=== PATIENT | female | born 1945 | race Caucasian/White ===

== ENCOUNTER 2016-10-02 13:30 | Inpatient (IN) | payer MEDICAID, MEDICARE ==
[~2016-10-02] VITALS: Ht 157.5 cm; Wt 52.2 kg
[2016-10-02 13:44] VITALS: BP 112/80; PULSE 78; RESP 20; TEMP 98.2; O2SAT 98
[2016-10-02] MEDS ORDERED: HYDROcodone/ACETAMIN 5-325 MG TAB (NORCO/ VICODIN) PO ONE (14:00)
[2016-10-02 14:49] LABS: BILIRUBIN,URINE NEGATIVE (NEGATIVE); BLOOD, URINE 1+ (NEGATIVE); CLARITY/URINE CLEAR (CLEAR); COLOR,URINE YELLOW (YELLOW); GLUCOSE,URINE NEGATIVE (NEGATIVE); KETONES,URINE NEGATIVE (NEGATIVE); LEUKOCYTE ESTERASE ,URINE TRACE (NEGATIVE); NITRITE, URINE NEGATIVE (NEGATIVE); PROTEIN URINE NEGATIVE (NEGATIVE); UROBILINOGEN,URINE 0.2 (0.2-1.0)
[2016-10-02 15:00] LABS: BASOPHILS % (AUTO) 0.2 % (0.0-2.0); EOSINOPHILS % (AUTO) 0.2 % (0.0-4.0); HEMATOCRIT 43.7 % (36-48); HEMOGLOBIN 14.8 g/dL (12.0-16.0); LYMPHOCYTES # (AUTO) 1.2 K/uL (1.0-5.5); MEAN CORPUSCULAR HEMOGLOBIN 35 pg (27-31); MEAN CORPUSCULAR HGB CONC 34 % (32-36); MEAN CORPUSCULAR VOLUME 105 fL (79.0-98.0); MONOCYTES # (AUTO) 0.4 K/uL (0.0-1.0); MONOCYTES % (AUTO) 2.7 % (1.7-9.3); NEUTROPHILS # (AUTO) 11.8 K/uL (1.8-7.7); NEUTROPHILS % (AUTO) 87.9 % (40.0-70.0); PLATELET COUNT (AUTO) 284 K/uL (130-430); RED BLOOD CELL COUNT(AUTO) 4.17 MIL/uL (4.2-6.2); RED CELL DISTRIBUTION WIDTH 12.1 % (9.0-15.0); WHITE BLOOD COUNT (AUTO) 13.4 K/uL (4.8-10.8)
[2016-10-02] MEDS ORDERED: fentaNYL CITRATE/PF 100 MCG/2 ML AMP IVP ONE (15:00)
[2016-10-02] MEDS ORDERED: ONDANSETRON HCL 4 MG/2 ML VIAL IVP ONE (15:00)
[2016-10-02 15:09] LABS: BACTERIA,URINE FEW /HPF (None Seen); MUCUS,URINE None Seen /LPF (None Seen); RBC,URINE 0-3 /HPF (0-3)
[2016-10-02 15:09] LABS: CALCIUM 8.7 mg/dL (8.4-11.0); CREATININE 0.5 mg/dL (0.55-1.30); POTASSIUM 3.7 mmol/L (3.5-5.1)
[2016-10-02 15:13] LABS: ALBUMIN 3.7 g/dL (3.4-4.8); TOTAL BILIRUBIN 0.2 mg/dL (0.0-1.0)
[2016-10-02 15:16] LABS: INR 0.9 (0.8-1.2)
[2016-10-02] MEDS ORDERED: ASPI325T2 PO (15:39)
[2016-10-02] MEDS ORDERED: penicillin PO (15:39)
[2016-10-02 16:20] VITALS: BP 129/73; PULSE 93; RESP 18; TEMP 97.1; O2SAT 97
[2016-10-02] MEDS ORDERED: ACETAMINOPHEN 500 MG TABLET PO PRN (19:45)
[2016-10-02 19:48] VITALS: BP 137/69; PULSE 94; RESP 16; TEMP 97.1; O2SAT 97
[2016-10-02] MEDS: HYDROcodone/ACETAMIN 5-325 MG TAB (NORCO/ VICODIN) PO PRN (20:38)
[2016-10-02] MEDS: KCL 20 mEq in D5/0.45NS 1000mL 1,000 ML IV SCH (23:01)
[2016-10-02] MEDS: chlordiazePOXIDE HCL 25 MG CAPSULE PO PRN (23:02)
[2016-10-02] MEDS: AMOXICILLIN/CLAVULANATE POTASSIUM 250 MG/5 ML, 75 ML BTL PO SCH (23:02)
[2016-10-02] MEDS: CYCLOBENZAPRINE HCL 10 MG TABLET (FLEXERIL) PO PRN (23:02)
[2016-10-03] VITALS (7 sets, daily range): BP systolic 105–162; BP diastolic 54–84; PULSE 77–101; RESP 14–18; TEMP 96.5–98.4; O2SAT 96–98
[2016-10-03] MEDS: AMOXICILLIN/CLAVULANATE POTASSIUM 250 MG/5 ML, 75 ML BTL PO SCH ×3 (05:17→20:59)
[2016-10-03 06:44] LABS: CALCIUM 8.2 mg/dL (8.4-11.0); CREATININE 0.53 mg/dL (0.55-1.30); POTASSIUM 3.6 mmol/L (3.5-5.1)
[2016-10-03 06:56] LABS: BASOPHILS % (AUTO) 0.6 % (0.0-2.0); EOSINOPHILS % (AUTO) 0.5 % (0.0-4.0); HEMOGLOBIN 13.8 g/dL (12.0-16.0); LYMPHOCYTES # (AUTO) 1.3 K/uL (1.0-5.5); LYMPHOCYTES % (AUTO) 17.8 % (20.5-51.5); MEAN CORPUSCULAR HEMOGLOBIN 35 pg (27-31); MEAN CORPUSCULAR HGB CONC 34 % (32-36); MEAN CORPUSCULAR VOLUME 103 fL (79.0-98.0); MONOCYTES # (AUTO) 0.5 K/uL (0.0-1.0); MONOCYTES % (AUTO) 7.4 % (1.7-9.3); NEUTROPHILS # (AUTO) 5.6 K/uL (1.8-7.7); NEUTROPHILS % (AUTO) 73.7 % (40.0-70.0); PLATELET COUNT (AUTO) 228 K/uL (130-430); RED CELL DISTRIBUTION WIDTH 12.1 % (9.0-15.0); WHITE BLOOD COUNT (AUTO) 7.4 K/uL (4.8-10.8)
[2016-10-03] MEDS: HYDROcodone/ACETAMIN 5-325 MG TAB (NORCO/ VICODIN) PO PRN ×3 (07:50→21:00)
[2016-10-03] MEDS: ENOXAPARIN SODIUM 40 MG/0.4 ML SYRINGE SUBCUT SCH (08:25)
[2016-10-03] MEDS: ASPIRIN 325 MG TABLET PO SCH (08:25)
[2016-10-03] MEDS: CYCLOBENZAPRINE HCL 10 MG TABLET (FLEXERIL) PO PRN ×2 (08:33→21:00)
[2016-10-03] MEDS: chlordiazePOXIDE HCL 25 MG CAPSULE PO PRN ×2 (08:33→21:00)
[2016-10-03] MEDS: THIAMINE HCL 100 MG in NS 50 ML IV SCH (08:34)
[2016-10-03] MEDS: KCL 20 mEq in D5/0.45NS 1000mL 1,000 ML IV SCH (14:36)
[2016-10-04] MEDS: KCL 20 mEq in D5/0.45NS 1000mL 1,000 ML IV SCH ×2 (03:08→17:44)
[2016-10-04 04:12] VITALS: BP 111/57; PULSE 89; RESP 18; TEMP 98.2; O2SAT 97
[2016-10-04] MEDS: CYCLOBENZAPRINE HCL 10 MG TABLET (FLEXERIL) PO PRN ×2 (05:11→17:42)
[2016-10-04] MEDS: HYDROcodone/ACETAMIN 5-325 MG TAB (NORCO/ VICODIN) PO PRN ×2 (05:11→17:42)
[2016-10-04] MEDS: AMOXICILLIN/CLAVULANATE POTASSIUM 250 MG/5 ML, 75 ML BTL PO SCH ×3 (05:11→22:06)
[2016-10-04] MEDS: ENOXAPARIN SODIUM 40 MG/0.4 ML SYRINGE SUBCUT SCH (08:35)
[2016-10-04] MEDS: ASPIRIN 325 MG TABLET PO SCH (08:35)
[2016-10-04] MEDS: chlordiazePOXIDE HCL 25 MG CAPSULE PO PRN ×2 (08:39→17:43)
[2016-10-04 08:41] VITALS: BP 110/67; PULSE 98; RESP 18; TEMP 97.8; O2SAT 97
[2016-10-04] MEDS: THIAMINE HCL 100 MG in NS 50 ML IV SCH (09:55)
[2016-10-04 12:00] VITALS: BP 108/73; PULSE 84; RESP 18; TEMP 97.3; O2SAT 95
[2016-10-04 18:36] VITALS: BP 105/70; PULSE 80; RESP 18; TEMP 97.1; O2SAT 95
[2016-10-04 20:42] VITALS: BP 108/54; PULSE 68; RESP 16; TEMP 97.8; O2SAT 98
[2016-10-04 23:50] VITALS: BP 126/71; PULSE 86; RESP 20; TEMP 97.2; O2SAT 100
[2016-10-05] MEDS: HYDROcodone/ACETAMIN 5-325 MG TAB (NORCO/ VICODIN) PO PRN ×2 (03:43→15:47)
[2016-10-05 04:18] VITALS: BP 127/64; PULSE 90; RESP 20; TEMP 97.2; O2SAT 97
[2016-10-05] MEDS: KCL 20 mEq in D5/0.45NS 1000mL 1,000 ML IV SCH ×2 (05:23→22:16)
[2016-10-05] MEDS: AMOXICILLIN/CLAVULANATE POTASSIUM 250 MG/5 ML, 75 ML BTL PO SCH ×3 (06:00→22:15)
[2016-10-05] MEDS: ENOXAPARIN SODIUM 40 MG/0.4 ML SYRINGE SUBCUT SCH (08:54)
[2016-10-05] MEDS: chlordiazePOXIDE HCL 25 MG CAPSULE PO PRN ×3 (08:54→22:18)
[2016-10-05] MEDS: THIAMINE HCL 100 MG in NS 50 ML IV SCH (08:54)
[2016-10-05] MEDS: ASPIRIN 325 MG TABLET PO SCH (08:55)
[2016-10-05 08:56] VITALS: BP 104/68; PULSE 107; RESP 20; TEMP 98; O2SAT 97
[2016-10-05 13:06] VITALS: BP 124/74; PULSE 92; RESP 16; TEMP 97.4; O2SAT 98
[2016-10-05 17:05] VITALS: BP 141/70; PULSE 83; RESP 18; TEMP 97.4; O2SAT 96
[2016-10-05 19:00] VITALS: BP 135/72; PULSE 85; RESP 16; TEMP 97.5; O2SAT 96
[2016-10-05 20:00] VITALS: BP 135/72; PULSE 85; RESP 16; TEMP 97.5; O2SAT 96
[2016-10-06] VITALS: BP 140/71; PULSE 83; RESP 16; TEMP 97.1; O2SAT 96
[2016-10-06] MEDS: HYDROcodone/ACETAMIN 5-325 MG TAB (NORCO/ VICODIN) PO PRN ×3 (01:32→12:22)
[2016-10-06 04:00] VITALS: BP 132/76; PULSE 90; RESP 16; TEMP 97.4; O2SAT 98
[2016-10-06] MEDS: CYCLOBENZAPRINE HCL 10 MG TABLET (FLEXERIL) PO PRN (04:29)
[2016-10-06] MEDS: AMOXICILLIN/CLAVULANATE POTASSIUM 250 MG/5 ML, 75 ML BTL PO SCH (06:07)
[2016-10-06] MEDS: chlordiazePOXIDE HCL 25 MG CAPSULE PO PRN ×2 (06:07→12:21)
[2016-10-06 06:53] LABS: BASOPHILS % (AUTO) 0.6 % (0.0-2.0); EOSINOPHILS # (AUTO) 0.2 K/uL (0.0-0.4); EOSINOPHILS % (AUTO) 3.9 % (0.0-4.0); HEMATOCRIT 40.4 % (36-48); HEMOGLOBIN 13.5 g/dL (12.0-16.0); LYMPHOCYTES # (AUTO) 1.5 K/uL (1.0-5.5); LYMPHOCYTES % (AUTO) 24.9 % (20.5-51.5); MEAN CORPUSCULAR HEMOGLOBIN 35 pg (27-31); MEAN CORPUSCULAR HGB CONC 34 % (32-36); MEAN CORPUSCULAR VOLUME 105 fL (79.0-98.0); MONOCYTES # (AUTO) 0.5 K/uL (0.0-1.0); NEUTROPHILS # (AUTO) 3.9 K/uL (1.8-7.7); NEUTROPHILS % (AUTO) 62.6 % (40.0-70.0); PLATELET COUNT (AUTO) 259 K/uL (130-430); RED BLOOD CELL COUNT(AUTO) 3.84 MIL/uL (4.2-6.2); RED CELL DISTRIBUTION WIDTH 11.9 % (9.0-15.0); WHITE BLOOD COUNT (AUTO) 6.1 K/uL (4.8-10.8)
[2016-10-06 07:09] LABS: CALCIUM 8.9 mg/dL (8.4-11.0); CREATININE 0.51 mg/dL (0.55-1.30); PHOSPHORUS 4.7 mg/dL (2.7-4.5); POTASSIUM 3.8 mmol/L (3.5-5.1)
[2016-10-06] MEDS: KCL 20 mEq in D5/0.45NS 1000mL 1,000 ML IV SCH (08:20)
[2016-10-06 08:34] VITALS: BP 108/72; PULSE 98; RESP 18; TEMP 97.8; O2SAT 97
[2016-10-06] MEDS: ASPIRIN 325 MG TABLET PO SCH (08:36)
[2016-10-06] MEDS: ENOXAPARIN SODIUM 40 MG/0.4 ML SYRINGE SUBCUT SCH (08:36)
[2016-10-06] MEDS: THIAMINE HCL 100 MG in NS 50 ML IV SCH (08:43)
[2016-10-06 12:35] VITALS: BP 138/76; PULSE 89; RESP 15; TEMP 97.6; O2SAT 99
[2016-10-06 12:39] VITALS: BP 136/76; PULSE 86; TEMP 98; O2SAT 98
== END 2016-10-06 13:35 | DRG 340 ==
LOC: SED 13:30 → SMU 16:10
PROVIDERS: ADMIT Family Medicine; ATTEND Family Medicine
DX: M80.051A Age-related osteoporosis with current pathological fracture, right femur, initial encounter for fracture (principal); M19.90 Unspecified osteoarthritis, unspecified site; W01.0XXA Fall on same level from slipping, tripping and stumbling without subsequent striking against object, initial encounter; Y93.89 Activity, other specified; Y92.098 Other place in other non-institutional residence as the place of occurrence of the external cause; Y99.8 Other external cause status; Z88.5 Allergy status to narcotic agent; Z79.82 Long term (current) use of aspirin
CPT/HCPCS: 36415; 71010; 73502; 80048; 80053; 80061; 81000-TC; 83735-TC; 83880; 84100-TC; 84484; 85025; 85610-TC; 85730-TC; 87086; 93005; 96374; 96375; 97110-GP; 97116-GP; 97530-GP; 99285; J1650; J2405; J3010; J3411

== ENCOUNTER 2016-11-30 17:44 | Inpatient (IN) | payer MEDICAID, MEDICARE ==
[~2016-11-30] VITALS: Ht 157.5 cm; Wt 50.8 kg
[~2016-11-30 17:44] MED LIST: ASPI325T2 PO; penicillin PO
[2016-11-30 17:48] VITALS: BP_SYST 148
[2016-11-30] MEDS ORDERED: NACL 0.9% 1,000 ML IV SCH (17:59)
[2016-11-30] MEDS ORDERED: PANTOPRAZOLE SODIUM 40 MG/VIAL (PROTONIX) IVP ONE (18:00)
[2016-11-30 18:29] LABS: BASOPHILS # (AUTO) 0.1 K/uL (0.0-0.2); BASOPHILS % (AUTO) 1.3 % (0.0-2.0); EOSINOPHILS % (AUTO) 0.5 % (0.0-4.0); HEMATOCRIT 37.1 % (36-48); HEMOGLOBIN 12.8 g/dL (12.0-16.0); LYMPHOCYTES # (AUTO) 2.4 K/uL (1.0-5.5); MEAN CORPUSCULAR HEMOGLOBIN 35 pg (27-31); MEAN CORPUSCULAR HGB CONC 35 % (32-36); MEAN CORPUSCULAR VOLUME 101 fL (79.0-98.0); MONOCYTES # (AUTO) 0.5 K/uL (0.0-1.0); MONOCYTES % (AUTO) 6.8 % (1.7-9.3); NEUTROPHILS # (AUTO) 4.6 K/uL (1.8-7.7); NEUTROPHILS % (AUTO) 60.4 % (40.0-70.0); PLATELET COUNT (AUTO) 302 K/uL (130-430); RED BLOOD CELL COUNT(AUTO) 3.69 MIL/uL (4.2-6.2); RED CELL DISTRIBUTION WIDTH 11.9 % (9.0-15.0); WHITE BLOOD COUNT (AUTO) 7.6 K/uL (4.8-10.8)
[2016-11-30 18:31] LABS: CALCIUM 9.1 mg/dL (8.4-11.0); CREATININE 0.62 mg/dL (0.55-1.30); POTASSIUM 3.2 mmol/L (3.5-5.1)
[2016-11-30 18:35] LABS: INR 0.9 (0.8-1.2); PROTHROMBIN TIME 10.1 SECS (9.5-12.5)
[2016-11-30 18:36] LABS: ALBUMIN 3.8 g/dL (3.4-4.8); TOTAL BILIRUBIN 0.3 mg/dL (0.0-1.0)
[2016-11-30] MEDS: D5/0.45 NS 1,000 ML IV SCH (19:15)
[2016-11-30 19:40] VITALS: BP_SYST 134
[2016-11-30 20:00] VITALS: BP_SYST 134
[2016-11-30] MEDS ORDERED: ACET-1010 PO (20:22)
[2016-12-01] VITALS (10 sets, daily range): BP systolic 110–162
[2016-12-01] MEDS: ACETAMINOPHEN 325 MG TABLET PO PRN ×3 (01:32→15:41)
[2016-12-01 06:23] LABS: BASOPHILS % (AUTO) 0.6 % (0.0-2.0); EOSINOPHILS # (AUTO) 0.1 K/uL (0.0-0.4); EOSINOPHILS % (AUTO) 1.6 % (0.0-4.0); HEMATOCRIT 36.8 % (36-48); HEMOGLOBIN 12.6 g/dL (12.0-16.0); LYMPHOCYTES # (AUTO) 1.8 K/uL (1.0-5.5); LYMPHOCYTES % (AUTO) 28.6 % (20.5-51.5); MEAN CORPUSCULAR HEMOGLOBIN 35 pg (27-31); MEAN CORPUSCULAR HGB CONC 34 % (32-36); MEAN CORPUSCULAR VOLUME 102 fL (79.0-98.0); MONOCYTES # (AUTO) 0.5 K/uL (0.0-1.0); MONOCYTES % (AUTO) 7.6 % (1.7-9.3); NEUTROPHILS # (AUTO) 3.9 K/uL (1.8-7.7); NEUTROPHILS % (AUTO) 61.6 % (40.0-70.0); PLATELET COUNT (AUTO) 290 K/uL (130-430); RED BLOOD CELL COUNT(AUTO) 3.62 MIL/uL (4.2-6.2); RED CELL DISTRIBUTION WIDTH 11.6 % (9.0-15.0); WHITE BLOOD COUNT (AUTO) 6.3 K/uL (4.8-10.8)
[2016-12-01 07:03] LABS: CALCIUM 8.9 mg/dL (8.4-11.0); CREATININE 0.6 mg/dL (0.55-1.30); POTASSIUM 3.2 mmol/L (3.5-5.1)
[2016-12-01] MEDS: PANTOPRAZOLE SODIUM 40 MG/VIAL (PROTONIX) IVP SCH (08:13)
[2016-12-01] MEDS: D5/0.45 NS 1,000 ML IV SCH ×2 (08:13→22:50)
[2016-12-01] MEDS ORDERED: POTASSIUM CHLORIDE 20 MEQ/PKT PACKET PO ONE (13:00)
[2016-12-01] MEDS ORDERED: ONDANSETRON HCL 4 MG/2 ML VIAL IVP PRN (13:15)
[2016-12-01] MEDS ORDERED: cloNIDine HCL 0.1 MG TABLET PO PRN (14:30)
[2016-12-01] MEDS ORDERED: amLODIPine BESYLATE 10 MG TABLET PO ONE (15:30)
[2016-12-01] MEDS ORDERED: GOLYTELY / COLYTE SOLUTION 4 LITERS PO ONE (18:00)
[2016-12-02 04:24] VITALS: BP_SYST 115
[2016-12-02 07:07] LABS: BASOPHILS # (AUTO) 0.1 K/uL (0.0-0.2); BASOPHILS % (AUTO) 0.8 % (0.0-2.0); EOSINOPHILS # (AUTO) 0.1 K/uL (0.0-0.4); EOSINOPHILS % (AUTO) 1.1 % (0.0-4.0); HEMATOCRIT 39.4 % (36-48); HEMOGLOBIN 13.4 g/dL (12.0-16.0); LYMPHOCYTES # (AUTO) 1.7 K/uL (1.0-5.5); LYMPHOCYTES % (AUTO) 25.7 % (20.5-51.5); MEAN CORPUSCULAR HEMOGLOBIN 34 pg (27-31); MEAN CORPUSCULAR HGB CONC 34 % (32-36); MEAN CORPUSCULAR VOLUME 101 fL (79.0-98.0); MONOCYTES # (AUTO) 0.4 K/uL (0.0-1.0); MONOCYTES % (AUTO) 6.5 % (1.7-9.3); NEUTROPHILS # (AUTO) 4.2 K/uL (1.8-7.7); NEUTROPHILS % (AUTO) 65.9 % (40.0-70.0); PLATELET COUNT (AUTO) 311 K/uL (130-430); RED BLOOD CELL COUNT(AUTO) 3.91 MIL/uL (4.2-6.2); RED CELL DISTRIBUTION WIDTH 11.8 % (9.0-15.0); WHITE BLOOD COUNT (AUTO) 6.5 K/uL (4.8-10.8)
[2016-12-02 07:16] LABS: CALCIUM 9.1 mg/dL (8.4-11.0); CREATININE 0.59 mg/dL (0.55-1.30); POTASSIUM 3.2 mmol/L (3.5-5.1)
[2016-12-02 07:48] LABS: INR 0.9 (0.8-1.2); PROTHROMBIN TIME 10.1 SECS (9.5-12.5)
[2016-12-02 08:02] VITALS: BP_SYST 118
[2016-12-02] MEDS: PANTOPRAZOLE SODIUM 40 MG/VIAL (PROTONIX) IVP SCH (09:27)
[2016-12-02 12:29] VITALS: BP_SYST 134
[2016-12-02] MEDS ORDERED: SIMETHICONE 40 MG/0.6 ML ML ONE (12:46)
[2016-12-02] MEDS ORDERED: fentaNYL CITRATE/PF 100 MCG/2 ML AMP ONE ×2 (12:47→14:01)
[2016-12-02] MEDS: MIDAZOLAM HCL 5 MG/5 ML VIAL ONE ×5 (13:32→13:46)
[2016-12-02] MEDS: fentaNYL CITRATE/PF 100 MCG/2 ML AMP ONE ×4 (13:32→13:37)
[2016-12-02] MEDS ORDERED: DIPHENHYDRAMINE INJ 50 MG/ML VIAL ONE (14:30)
[2016-12-02] MEDS: amLODIPine BESYLATE 10 MG TABLET PO SCH (15:35)
[2016-12-02] MEDS: D5/0.45 NS 1,000 ML IV SCH (15:40)
[2016-12-02 16:28] VITALS: BP_SYST 143
[2016-12-02 19:40] VITALS: BP_SYST 114
[2016-12-03 01:10] VITALS: BP_SYST 101
[2016-12-03] MEDS: ACETAMINOPHEN 325 MG TABLET PO PRN ×3 (03:56→13:55)
[2016-12-03 04:43] VITALS: BP_SYST 97
[2016-12-03] MEDS: D5/0.45 NS 1,000 ML IV SCH (06:26)
[2016-12-03 06:38] LABS: BASOPHILS % (AUTO) 0.4 % (0.0-2.0); EOSINOPHILS # (AUTO) 0.2 K/uL (0.0-0.4); EOSINOPHILS % (AUTO) 1.6 % (0.0-4.0); HEMATOCRIT 35.9 % (36-48); HEMOGLOBIN 12.4 g/dL (12.0-16.0); LYMPHOCYTES # (AUTO) 2.4 K/uL (1.0-5.5); LYMPHOCYTES % (AUTO) 25.1 % (20.5-51.5); MEAN CORPUSCULAR HEMOGLOBIN 35 pg (27-31); MEAN CORPUSCULAR HGB CONC 35 % (32-36); MEAN CORPUSCULAR VOLUME 101 fL (79.0-98.0); MONOCYTES # (AUTO) 0.6 K/uL (0.0-1.0); MONOCYTES % (AUTO) 5.8 % (1.7-9.3); NEUTROPHILS # (AUTO) 6.4 K/uL (1.8-7.7); NEUTROPHILS % (AUTO) 67.1 % (40.0-70.0); PLATELET COUNT (AUTO) 288 K/uL (130-430); RED BLOOD CELL COUNT(AUTO) 3.54 MIL/uL (4.2-6.2); RED CELL DISTRIBUTION WIDTH 11.7 % (9.0-15.0); WHITE BLOOD COUNT (AUTO) 9.6 K/uL (4.8-10.8)
[2016-12-03 07:01] LABS: CALCIUM 8.9 mg/dL (8.4-11.0); CREATININE 0.63 mg/dL (0.55-1.30); POTASSIUM 3.2 mmol/L (3.5-5.1)
[2016-12-03 08:42] VITALS: BP_SYST 115
[2016-12-03] MEDS: PANTOPRAZOLE SODIUM 40 MG/VIAL (PROTONIX) IVP SCH (09:09)
[2016-12-03] MEDS: amLODIPine BESYLATE 10 MG TABLET PO SCH (09:09)
[2016-12-03 12:00] VITALS: BP_SYST 114
[2016-12-03] MEDS ORDERED: POTASSIUM CHLORIDE 20 MEQ/PKT PACKET PO ONE (14:30)
[2016-12-03] MEDS ORDERED: FAMO40TA35 PO (15:55)
[2016-12-03] MEDS ORDERED: [UNRECOGNIZED DRUG - OTHER] RC (15:56)
[2016-12-03 16:05] VITALS: BP_SYST 112
[2016-12-03 16:30] VITALS: BP_SYST 112
== END 2016-12-03 17:20 | disposition home or self-care (01) | DRG 253 ==
LOC: SED 17:44 → SMU 19:11
PROVIDERS: ADMIT Family Medicine; ATTEND Family Medicine
PROC: 0DB68ZX Excision of Stomach, Via Natural or Artificial Opening Endoscopic, Diagnostic (ICD-10-PCS; 2016-12-02)
PROC: 0DB98ZX Excision of Duodenum, Via Natural or Artificial Opening Endoscopic, Diagnostic (ICD-10-PCS; principal; 2016-12-02 13:30)
PROC: 0DBK8ZX Excision of Ascending Colon, Via Natural or Artificial Opening Endoscopic, Diagnostic (ICD-10-PCS; 2016-12-02 13:30)
DX: K62.5 Hemorrhage of anus and rectum (principal); K70.9 Alcoholic liver disease, unspecified; K29.00 Acute gastritis without bleeding; F10.20 Alcohol dependence, uncomplicated; D64.9 Anemia, unspecified; K52.9 Noninfective gastroenteritis and colitis, unspecified; K64.9 Unspecified hemorrhoids; K29.50 Unspecified chronic gastritis without bleeding; Z88.6 Allergy status to analgesic agent; Z98.891 History of uterine scar from previous surgery; Z86.718 Personal history of other venous thrombosis and embolism; Z79.899 Other long term (current) drug therapy; Z87.891 Personal history of nicotine dependence
CPT/HCPCS: 36415; 43239; 45380; 71010; 80048; 80053; 82272; 83735-TC; 85025; 85610-TC; 85730-TC; 86886; 86900; 86901; 88305; 88312; 88313; 93005; 96361; 96374; 99285; C9113; J1200; J2250; J2405; J3010; J7030

== ENCOUNTER 2017-09-05 10:14 | Inpatient (IN) | payer MEDICAID, MEDICARE ==
[~2017-09-05] VITALS: Ht 157.5 cm; Wt 55.5 kg
[~2017-09-05 10:14] MED LIST changes: +ACET-1010 PO; -ASPI325T2 PO; +FAMO40TA35 PO; +[UNRECOGNIZED DRUG - OTHER] RC; -penicillin PO
[2017-09-05 10:39] VITALS: BP_SYST 165
[2017-09-05 11:10] LABS: BILIRUBIN,URINE NEGATIVE (NEGATIVE); BLOOD, URINE 1+ (NEGATIVE); CLARITY/URINE CLEAR (CLEAR); COLOR,URINE YELLOW (YELLOW); GLUCOSE,URINE NEGATIVE (NEGATIVE); KETONES,URINE NEGATIVE (NEGATIVE); LEUKOCYTE ESTERASE ,URINE NEGATIVE (NEGATIVE); NITRITE, URINE NEGATIVE (NEGATIVE); PROTEIN URINE NEGATIVE (NEGATIVE); UROBILINOGEN,URINE 0.2 (0.2-1.0)
[2017-09-05 11:16] LABS: BASOPHILS # (AUTO) 0.1 K/uL (0.0-0.2); BASOPHILS % (AUTO) 0.6 % (0.0-2.0); EOSINOPHILS % (AUTO) 0.5 % (0.0-4.0); HEMOGLOBIN 13.2 g/dL (12.0-16.0); LYMPHOCYTES # (AUTO) 1.9 K/uL (1.0-5.5); LYMPHOCYTES % (AUTO) 20.5 % (20.5-51.5); MEAN CORPUSCULAR HEMOGLOBIN 32 pg (27-31); MEAN CORPUSCULAR HGB CONC 34 % (32-36); MEAN CORPUSCULAR VOLUME 94 fL (79.0-98.0); MONOCYTES # (AUTO) 0.4 K/uL (0.0-1.0); MONOCYTES % (AUTO) 4.2 % (1.7-9.3); NEUTROPHILS # (AUTO) 6.9 K/uL (1.8-7.7); NEUTROPHILS % (AUTO) 74.2 % (40.0-70.0); PLATELET COUNT (AUTO) 434 K/uL (130-430); RED BLOOD CELL COUNT(AUTO) 4.13 MIL/uL (4.2-6.2); RED CELL DISTRIBUTION WIDTH 12.2 % (9.0-15.0); WHITE BLOOD COUNT (AUTO) 9.3 K/uL (4.8-10.8)
[2017-09-05 11:29] LABS: INR 0.9 (0.8-1.2); PROTHROMBIN TIME 9.3 SECS (9.5-12.5)
[2017-09-05 11:30] LABS: CALCIUM 9.4 mg/dL (8.4-11.0); CREATININE 0.47 mg/dL (0.55-1.30); POTASSIUM 3.1 mmol/L (3.5-5.1)
[2017-09-05 11:36] LABS: ALBUMIN 3.8 g/dL (3.4-4.8); TOTAL BILIRUBIN 0.2 mg/dL (0.0-1.0)
[2017-09-05] MEDS ORDERED: POTASSIUM CHLORIDE 20 MEQ TAB.PRT.SR PO ONE (12:15)
[2017-09-05 15:17] VITALS: BP_SYST 166
[2017-09-05] MEDS ORDERED: MILK OF MAGNESIA 30 ML UDC PO PRN (18:15)
[2017-09-05 20:00] VITALS: BP_SYST 132
[2017-09-05 20:21] VITALS: BP_SYST 152
[2017-09-05] MEDS: ENOXAPARIN SODIUM 30 MG/0.3 ML SYRINGE SUBCUT SCH (21:22)
[2017-09-05 23:34] VITALS: BP_SYST 129
[2017-09-06 08:20] VITALS: BP_SYST 158
[2017-09-06] MEDS ORDERED: FAMOTIDINE 20 MG TABLET PO SCH (09:00)
[2017-09-06] MEDS: ACETAMINOPHEN 500 MG TABLET PO PRN ×2 (09:17→14:00)
[2017-09-06] MEDS ORDERED: LIDOCAINE 1%, 20 ML MDV 20 ML ONE (11:10)
[2017-09-06 12:35] VITALS: BP_SYST 145
[2017-09-06 16:10] VITALS: BP_SYST 121; BP_SYST 141
[2017-09-06 20:24] VITALS: BP_SYST 142
[2017-09-06] MEDS: ENOXAPARIN SODIUM 30 MG/0.3 ML SYRINGE SUBCUT SCH (21:20)
[2017-09-07 01:14] VITALS: BP_SYST 134
[2017-09-07] MEDS ORDERED: COMMUNICATION ORDER XX ONE (09:30)
[2017-09-07 09:55] VITALS: BP_SYST 141
[2017-09-07] MEDS ORDERED: FAMOTIDINE 20 MG TABLET PO ONE (10:30)
[2017-09-07] MEDS: ACETAMINOPHEN 500 MG TABLET PO PRN (11:25)
[2017-09-07 12:50] VITALS: BP_SYST 150
[2017-09-07 16:50] VITALS: BP_SYST 158
[2017-09-07] MEDS: FAMOTIDINE 20 MG TABLET PO SCH (18:50)
[2017-09-07 20:22] VITALS: BP_SYST 143
[2017-09-07] MEDS: ENOXAPARIN SODIUM 30 MG/0.3 ML SYRINGE SUBCUT SCH (21:47)
[2017-09-08 00:31] VITALS: BP_SYST 138
[2017-09-08] MEDS: ACETAMINOPHEN 500 MG TABLET PO PRN (08:40)
[2017-09-08 09:47] VITALS: BP_SYST 133
[2017-09-08 12:10] VITALS: BP_SYST 138
[2017-09-08 16:10] VITALS: BP_SYST 135
[2017-09-08] MEDS: FAMOTIDINE 20 MG TABLET PO SCH (18:11)
[2017-09-08 20:12] VITALS: BP_SYST 125
[2017-09-08] MEDS: ENOXAPARIN SODIUM 30 MG/0.3 ML SYRINGE SUBCUT SCH (20:31)
[2017-09-09] VITALS: BP_SYST 135
[2017-09-09 06:46] LABS: BASOPHILS # (AUTO) 0.2 K/uL (0.0-0.2); BASOPHILS % (AUTO) 1.8 % (0.0-2.0); EOSINOPHILS # (AUTO) 0.2 K/uL (0.0-0.4); EOSINOPHILS % (AUTO) 1.9 % (0.0-4.0); HEMATOCRIT 37.4 % (36-48); HEMOGLOBIN 12.6 g/dL (12.0-16.0); LYMPHOCYTES # (AUTO) 1.8 K/uL (1.0-5.5); LYMPHOCYTES % (AUTO) 20.9 % (20.5-51.5); MEAN CORPUSCULAR HEMOGLOBIN 32 pg (27-31); MEAN CORPUSCULAR HGB CONC 34 % (32-36); MEAN CORPUSCULAR VOLUME 94 fL (79.0-98.0); MONOCYTES # (AUTO) 0.6 K/uL (0.0-1.0); MONOCYTES % (AUTO) 6.6 % (1.7-9.3); NEUTROPHILS # (AUTO) 5.7 K/uL (1.8-7.7); NEUTROPHILS % (AUTO) 68.8 % (40.0-70.0); PLATELET COUNT (AUTO) 374 K/uL (130-430); RED BLOOD CELL COUNT(AUTO) 3.96 MIL/uL (4.2-6.2); RED CELL DISTRIBUTION WIDTH 12.4 % (9.0-15.0); WHITE BLOOD COUNT (AUTO) 8.5 K/uL (4.8-10.8)
[2017-09-09 07:31] LABS: POTASSIUM 3.7 mmol/L (3.5-5.1)
[2017-09-09 07:32] LABS: CREATININE 0.51 mg/dL (0.55-1.30)
[2017-09-09 08:28] VITALS: BP_SYST 147
[2017-09-09] MEDS: ACETAMINOPHEN 500 MG TABLET PO PRN (09:42)
[2017-09-09 12:52] VITALS: BP_SYST 121
[2017-09-09 16:50] VITALS: BP_SYST 120
[2017-09-09] MEDS: FAMOTIDINE 20 MG TABLET PO SCH (18:16)
[2017-09-09] MEDS: ENOXAPARIN SODIUM 30 MG/0.3 ML SYRINGE SUBCUT SCH (20:10)
[2017-09-09 20:20] VITALS: BP_SYST 134
[2017-09-10] VITALS: BP_SYST 122
[2017-09-10 08:30] VITALS: BP_SYST 137
[2017-09-10] MEDS: ACETAMINOPHEN 500 MG TABLET PO PRN (12:44)
[2017-09-10 13:19] VITALS: BP_SYST 150
[2017-09-10 16:47] VITALS: BP_SYST 136
[2017-09-10 18:47] VITALS: BP_SYST 136
== END 2017-09-10 19:10 | disposition home or self-care (01) | DRG 136 ==
LOC: SED 10:14 → SMU 14:28
PROVIDERS: ADMIT Family Medicine; ATTEND Family Medicine
PROC: 0BBC3ZX Excision of Right Upper Lung Lobe, Percutaneous Approach, Diagnostic (ICD-10-PCS; principal; 2017-09-06)
DX: C34.11 Malignant neoplasm of upper lobe, right bronchus or lung (principal); J44.9 Chronic obstructive pulmonary disease, unspecified; J93.9 Pneumothorax, unspecified; M19.90 Unspecified osteoarthritis, unspecified site; J39.8 Other specified diseases of upper respiratory tract; I10 Essential (primary) hypertension; Z88.6 Allergy status to analgesic agent; Z79.899 Other long term (current) drug therapy; Z86.718 Personal history of other venous thrombosis and embolism; Z87.891 Personal history of nicotine dependence
CPT/HCPCS: 36415; 71045; 71250-TC; 71260-TC; 80048; 80053; 81003; 83605; 83735-TC; 83880; 84484; 85025; 85610-TC; 85730-TC; 87040-TC; 87086; 88305; 88307; 88313; 88341; 88342; 93005; 99285; J1650; J2001